=== PATIENT | female | born 1955 | race Caucasian/White ===

== ENCOUNTER 2018-11-17 14:42 | Emergency (ER) | payer OTHER ==
[2018-11-17 14:46] VITALS: BP 138/92; PULSE 60; TEMP 98.3; BMI 20.2
[2018-11-17 15:48] LABS: CALCIUM OXALATE CRYSTALS FEW /hpf (NONE SEEN); EPITHELIAL CELLS MANY /hpf; URINE MUCUS 3+
--- NOTE | 2018-11-17 16:37 | PDOC ---
Documentation entered by Jennifer Solomon SCRIBE, acting as scribe for Johnson Atwood MD. Johnson Atwood MD: This documentation has been prepared by the Juanito rubin Sammi, SCRIBE, under my direction and personally reviewed by me in its entirety. I confirm that the documentation accurately reflects all work, treatment, procedures, and medical decision making performed by me. History of Present Illness - General Chief Complaint: Urinary Problem Stated Complaint: burning on urination - History of Present Illness Initial Comments: 11/17/18 16:27 63-year-old female with no significant past medical history presents the emergency department with urinary frequency, dysuria, and urgency since this morning. Patient notes she's been running around for the last 2 days visiting someone in the hospital and has not been drinking nearly enough water and she should be. She denies any associated abdominal pain, flank pain, fevers, chills , nausea, vomiting. She reports identical symptoms in the past that resolved with antibiotics and diagnosed as UTIs. Does not remember which abx were given. DEnies weakness, dizziness, focal weakness or numbness, chest pain or shortness of breath. Denies lower extremity edema or rashes. Denies recent travel. Past History - Past Medical History Allergies/Adverse Reactions: Allergies Allergy/AdvReac Type Severity Reaction Status Date / Time No Known Allergies Allergy Unverified 11/17/18 14:43 Review of Systems - Review of Systems Comments:: 11/17/18 16:29 GENERAL/CONSTITUTIONAL: No fever or chills. No weakness. HEAD, EYES, EARS, NOSE AND THROAT: No change in vision. No ear pain or discharge. No sore throat. GASTROINTESTINAL: No nausea, vomiting, diarrhea or constipation. GENITOURINARY: +dysuria, frequency, and change in urination. CARDIOVASCULAR: No chest pain or shortness of breath. RESPIRATORY: No cough, wheezing, or hemoptysis. MUSCULOSKELETAL: No joint or muscle swelling or pain. No neck or back pain. SKIN: No rash NEUROLOGIC: No headache, vertigo, loss of consciousness, or change in strength/ sensation. ENDOCRINE: No increased thirst. No abnormal weight change. HEMATOLOGIC/LYMPHATIC: No anemia, easy bleeding, or history of blood clots. ALLERGIC/IMMUNOLOGIC: No hives or skin allergy. *Physical Exam - Vital Signs Last Vital Signs Temp Pulse Resp BP Pulse Ox 98.3 F 60 15 138/92 100 11/17/18 14:42 11/17/18 14:42 11/17/18 14:42 11/17/18 14:42 11/17/18 14:42 - Physical Exam Comments: 11/17/18 16:30 GENERAL: Awake, alert, and fully oriented, in no acute distress. Well appearing HEAD: No signs of trauma EYES: PERRLA, EOMI, sclera anicteric, conjunctiva clear ENT: Oropharynx clear without exudates. Moist mucosa NECK: Normal ROM, supple, no lymphadenopathy, JVD, or masses LUNGS: Breath sounds equal, clear to auscultation bilaterally. No wheezes, and no crackles HEART: Regular rate and rhythm, normal S1 and S2, no murmurs, rubs or gallops ABDOMEN: Soft, nontender, normoactive bowel sounds. No guarding, no rebound. No masses : No CVAT tenderness EXTREMITIES: Normal range of motion, no edema. No cords, erythema, or tenderness NEUROLOGICAL: Normal speech, cranial nerves intact, equal strength and sensation b/l SKIN: Warm, Dry, normal turgor, no rashes or lesions noted. ED Treatment Course - ADDITIONAL ORDERS Additional order review: Laboratory Results 11/17/18 14:43 Urine Color Yellow Urine Appearance Clear Urine pH 5.0 Urine Protein 1+ H Urine Glucose (UA) Negative Urine Ketones Negative Urine Blood 2+ H Urine Nitrite Negative Urine Bilirubin 1+ H Urine Urobilinogen 1.0 Ur Leukocyte Esterase Negative Urine RBC 10-20 Urine WBC 2-5 Ur Transition Epith Cell Many Calcium Oxalate Crystal Few Urine Bacteria Many Urine Mucus 3+ Medical Decision Making - Medical Decision Making 11/17/18 16:32 63yo F presents to the ED with UTI sxs Vitals wnl Exam wnl No systemic signs of infection. No evidence of pyelonephritis Called pt's pharmacy to see what she has been treated with in the past (pt has never been here before) Per [facility], pt prescribed course of macrobid January 2018 Will prescribe macrobid Pt is well appearing and clinically stable for DC home I discussed the physical exam findings, ancillary test results and final diagnoses with the patient. I answered all of the patient's questions. The patient was satisfied with the care received and felt comfortable with the discharge plan and treatment plan. The patient will call their primary care physician within 24 hours to arrange follow-up and will return to the Emergency Department with any new, persistent or worsening symptoms. *DC/Admit/Observation/Transfer Diagnosis at time of Disposition: UTI (urinary tract infection), Urinary frequency, Dysuria - Discharge Dispostion Disposition: HOME Condition at time of disposition: Stable Decision to Admit order: No - Referrals - Patient Instructions Printed Discharge Instructions: DI for Urinary Tract Infection (UTI) Additional Instructions: Take the antibiotics as prescribed Follow up with your primary care doctor within 1 week Stay hydrated and drink plenty of fluids Return to the emergency department if you have any new, worsening, or concerning symptoms - Post Discharge Activity - Attestations Physician Attestion: 11/17/18 16:37 I, Dr. Johnson Atwood MD, attest that this document has been prepared under my direction and personally reviewed by me in its entirety. I further attest, that it accurately reflects all work, treatment, procedures and medical decision -making performed by me.
[2018-11-17] MEDS ORDERED: NITROFURANTOIN MACROCRYSTAL 50 MG CAPSULE (FP) ONE (16:40)
[2018-11-17] MEDS ORDERED: NITROFURANTOIN MACROCRYSTAL 50 MG CAPSULE (FP) PO SCH (16:45)
== END 2018-11-17 16:43 | disposition home or self-care (01) ==
LOC: FER 14:42
DX: N39.0 Urinary tract infection, site not specified (principal); R35.0 Frequency of micturition; R30.0 Dysuria
CPT/HCPCS: 81003; 81015; 87086; 87186; 99282-25

== ENCOUNTER 2022-12-11 07:44 | Day surgery (SDC) | payer OTHER ==
[2022-12-08 14:36] VITALS: BMI 19.2
[2022-12-11 10:03] VITALS: PULSE 84; RESP 20; TEMP 97.1
[2022-12-11 10:22] VITALS: BP 114/56
== END 2022-12-11 09:55 | disposition home or self-care (01) ==
LOC: FASU-ENDO 07:44
PROVIDERS: ATTEND Internal Medicine Gastroenterology
PROC: 0DJ08ZZ Inspection of Upper Intestinal Tract, Via Natural or Artificial Opening Endoscopic (ICD-10-PCS; principal; 2022-12-11 08:51)
DX: K22.2 Esophageal obstruction (principal); R13.10 Dysphagia, unspecified

== ENCOUNTER 2024-12-19 09:29 | Day surgery (SDC) | payer OTHER ==
[2024-12-15 15:11] VITALS: BMI 21.9
[2024-12-19 09:48] VITALS: RESP 16
[2024-12-19 11:36] VITALS: TEMP 98
[2024-12-19 11:55] VITALS: BP 129/71; PULSE 74
== END 2024-12-19 12:30 | disposition home or self-care (01) ==
LOC: FASU-ENDO 09:29
PROVIDERS: ATTEND Internal Medicine Gastroenterology
PROC: 0DBN8ZZ Excision of Sigmoid Colon, Via Natural or Artificial Opening Endoscopic (ICD-10-PCS; 2024-12-19)
PROC: 0DBP8ZZ Excision of Rectum, Via Natural or Artificial Opening Endoscopic (ICD-10-PCS; principal; 2024-12-19 11:13)
DX: Z12.11 Encounter for screening for malignant neoplasm of colon (principal); Z86.0100 Personal history of colon polyps, unspecified; D12.7 Benign neoplasm of rectosigmoid junction; D12.8 Benign neoplasm of rectum; K63.5 Polyp of colon
CPT/HCPCS: 88305-TC